=== PATIENT | female | born 1945 | race Caucasian/White ===

== ENCOUNTER 2024-12-29 09:04 | Emergency (ER) | payer MEDICARE, BC ==
[~2024-12-29] VITALS: Ht 160 cm; Wt 72.2 kg
[2024-12-29 09:20] VITALS: BP 143/93; PULSE 98; TEMP 97.9; O2SAT 97
--- NOTE | 2024-12-29 09:28 | Physician Documentation ---
History of Present Illness Chief Complaint: Abdominal Pain w/vomiting Stated Complaint: UTI, SICK HPI This is a 79-year-old female who presents with one and a half days of nausea, vomiting, and diarrhea along with developing dysuria and frequency last night. Patient reports no fevers. 79-year-old female patient who is recently relocated back to [place] came to the emergency room for dysuria since last night. She does have frequency of urination and burning sensation upon urination. She did have nausea vomiting yesterday. She did have abdominal pain yesterday but now she said there is no abdominal pain. The patient is not diabetic. She is taking medication for high blood pressure. Patient does not endorse chest pain, shortness a breath, any focal weakness. She does not smoke but she has been drinking alcohol regularly 2 to 3 drinks per day. She drinks with food. She says she is not agreeable with opioid medication because they cause hypotension. No fever no chills. Medication Reconciliation Scheduled Phenazopyridine HCl (Pyridium), 1 TAB PO Q8H Sulfamethoxazole/Trimethoprim (Bactrim Ds Tablet), 1 TAB PO Q12H Review of Systems ROS As stated above in the HPI, otherwise all systems are reviewed and negative. Physical Exam Vital Signs: Temperature: 97.9, Heart Rate: 98, Respiratory Rate: 16, BP: 143/93, Pulse Oximetry: 97, Weight: 72.200 Physical Exam VITALS: Reviewed and as above. GENERAL: Alert, nontoxic appearing, no apparent distress. HEENT: RESPIRATORY: No increased work of breathing, no respiratory distress, speaking in full clear sentences CHEST: CV: BACK: GI: MUSCULOSKELETAL: SKIN: NEURO: PSYCH: Reviewed vital signs and they are well within normal range and the patient is afebrile. Const: Well built adult female not in acute cardiopulmonary distress Head: Atraumatic Eyes: Normal Conjunctiva ENT: Normal External Ears, Nose and Mouth. Moist mucous membranes Neck: Full range of motion. No meningismus Resp: Clear to auscultation bilaterally. Normal work of breathing Cardio: Regular rate and rhythm, no murmurs. Skin well perfused, heart rate is 96 beats per minute. Abd: Soft, non-tender, non-distended. Normal bowel sounds. No rebound or guarding Skin: No petechiae or rashes. Warm and dry Back: No midline or flank tenderness Ext: No cyanosis, or edema Neuro: Awake and alert Psych: Normal Mood and Affect Progress Results/Orders Results/Orders Vital Signs 12/29/24 09:20 Temp 97.9 Pulse 98 Resp 16 B/P (MAP) 143/93 Pulse Ox 97 Medical Decision Making Findings MSE performed in triage and patient returned to ED lobby by nursing staff During the physical examination, the findings suggestive of acute life- threatening condition such as JVD, tracheal deviation, acidotic breathing, noisy stridorous breath sounds, pulses paradoxus, muffled heart sounds, unequal breath sounds, abdominal rigidity and rebound tenderness, focal neurological deficits, cool clammy skin, severe hypotension, severe tachycardia or bradycardia are absent. Abdominal examination does not reveal any signs of acute abdomen. WBC is 12.2 and H and H is 14 and 41.2 and platelets 248. Sodium 131 potassium 3.8 chloride 96 bicarb 24.3 BUN 13 creatinine 1.33 and glucose 113 AST is 46 ALT 41 her MCV and MCH is elevated. Urine WBC is TNTC. At this point of time I do not really think the patient needs to be in the hospital and bad we will provide outpatient antibiotic therapy and patient will be discharged with aftercare instructions. DISCLAIMER Inadvertent spelling and grammatical errors,inadvertent accounts payable representative errors,syntax errors, grammatical errors, and spelling errors are likely due to EMR/dictation software use and do not reflect on the overall quality of patient care. Note that the electronic time recorded on this note does not necessarily reflect the actual time of the patient encounter. Departure Disposition: 01 HOME / SELF CARE / HOMELESS Impression: Primary Impression: Acute urinary tract infection Condition: Stable Discharge Instructions: Urinary Tract Infection, Adult Additional Instructions: Thank you for coming to our Emergency Department today. Please drink lots of fluids and water to keep yourself well hydrated. Take vitamin B12 and folate supplement daily. Drink alcohol in moderation and gradually cut it down. Please ask your nurse or provider if you have questions about your care today and do not leave until all your questions have been answered. Please use any medications given as directed and follow-up with your doctor (or the doctor you were referred to) in the next 1-3 days. Your primary care doctor can help to coordinate outpatient specialty care and provide authorization for specialty referral as needed. If you do not have a primary care doctor you may follow up at a [facility]. You may also use motrin and tylenol as needed for fever and/or pain unless instructed otherwise by your provider or nurse. Indications for more urgent follow-up have been discussed, but you may return to the Emergency Department at ANY time for any worrisome or worsening symptoms. Referrals: NO PRIMARY CARE PROVIDER (PCP) Prescriptions Sulfamethoxazole/Trimethoprim (Bactrim Ds Tablet) 800 Mg-160 Mg Tablet 1 TAB PO Q12H for 7 Days, #14 TAB Prov: BURAK GRESHAM MD 12/29/24 Phenazopyridine HCl (Pyridium) 200 Mg Tablet 1 TAB PO Q8H for urinary discomfort for 3 Days, #9 TAB 0 Refills Prov: BURAK GRESHAM MD 12/29/24 Signature Scribe Signature: None Attestation: My dictation CHARLIE SLOANP Dec 29, 2024 09:28 BURAK GRESHAM MD Dec 29, 2024 10:43
[2024-12-29 09:40] LABS: CLARITY,URINE TURBID (Clear); COLOR,URINE BROWN (Yellow)
[2024-12-29 09:49] LABS: UA COLLECTION TYPE CLN CATCH MIDSTREAM
[2024-12-29 09:52] LABS: BASOPHILS # (AUTO) 0.1 X10'3 (0-0.2); BASOPHILS % (AUTO) 0.5 % (0-1); EOSINOPHILS % (AUTO) 0.2 % (0-6); HEMATOCRIT 41.2 % (35.0-45.0); LYMPHOCYTES # (AUTO) 0.7 X10'3 (1.1-4.8); LYMPHOCYTES % (AUTO) 5.8 % (21-51); MEAN CORPUSCULAR HEMOGLOBIN 35.5 PG (27.0-31.0); MEAN CORPUSCULAR HGB CONC 34.1 g/dL (33.0-36.5); MEAN CORPUSCULAR VOLUME 104.2 FL (78-98); MEAN PLATELET VOLUME 8.3 FL (7.4-10.4); MONOCYTES # (AUTO) 1.1 X10'3 (0-0.9); NEUTROPHILS # (AUTO) 10.3 X10'3 (1.8-7.7); NEUTROPHILS % (AUTO) 84.5 % (42-75); PLATELET COUNT 248 X10'3 (140-440); RED BLOOD COUNT 3.95 X10'6 (4.20-5.60); RED CELL DISTRIBUTION WIDTH 14.1 % (11.5-14.5); WHITE BLOOD COUNT 12.2 X10'3 (4.5-11.0)
[2024-12-29 10:00] LABS: BACTERIA,URINE 4+ /HPF (Neg); RBC,URINE 50-100 /HPF (0-2); TRANSITIONAL EPI CELLS,URINE FEW /HPF; WBC,URINE TNTC /HPF (0-4)
[2024-12-29 10:01] LABS: SQUAMOUS EPITHELIAL CELL,UR FEW /LPF (FEW)
[2024-12-29 10:09] LABS: ALANINE AMINOTRANSFERASE 41 U/L (12-78); ALBUMIN 3.9 G/DL (3.4-5.0); ALBUMIN/GLOBULIN RATIO 0.7 (1.1-1.5); ALKALINE PHOSPHATASE 143 IU/L (46-116); ANION GAP 11 (8-16); ASPARTATE AMINO TRANSFERASE 46 U/L (10-37); BLOOD UREA NITROGEN 13 MG/DL (7-18); BUN/CREATININE RATIO 9.8 (10.0-20.0); CALCIUM 9.7 MG/DL (8.5-10.1); CHLORIDE 96 MMOL/L (99-107); CREATININE 1.33 MG/DL (0.40-0.90); GLUCOSE 113 MG/DL (70-104); LIPASE 40 U/L (16-77); POTASSIUM 3.8 MMOL/L (3.5-5.1); SODIUM 131 MMOL/L (135-145); TOTAL CARBON DIOXIDE 24.3 MMOL/L (24-32); TOTAL PROTEIN 9.4 G/DL (6.4-8.2); eCRCL 29 ML/MIN; eGFR 39 ML/MIN
[2024-12-29] MEDS ORDERED: PHEN-716 PO (10:48)
[2024-12-29] MEDS ORDERED: SULF1TAB49 PO (10:48)
[2024-12-29 10:53] VITALS: RESP 16
[2024-12-29] MEDS: sulfamethoxazole/trimethoprim DS (800/160mg) tablet PO ONE (10:57)
== END 2024-12-29 11:01 | disposition home or self-care (01) ==
LOC: ER 09:06
DX: N39.0 Urinary tract infection, site not specified (principal); Z79.899 Other long term (current) drug therapy
CPT/HCPCS: 36415; 80053; 81001; 83690; 85025; 87077; 87088; 87186; 99284

== ENCOUNTER 2025-03-21 08:44 | Emergency (ER) | payer MEDICARE, BC ==
[~2025-03-21] VITALS: Ht 160 cm; Wt 71.8 kg
[~2025-03-21 08:44] MED LIST: PHEN-716 PO
[2025-03-21 08:45] VITALS: TEMP 98
--- NOTE | 2025-03-21 09:10 | Physician Documentation ---
History of Present Illness ~ Chief Complaint: Mechanical Fall Stated Complaint: FALL AND ABD PAIN Time Seen by MD: 09:09 HPI 79-year-old female presenting with a fall and head injury recently, as well as abdominal pain She tells me that several days ago she tripped and fell, hitting the front of her head. No loss of consciousness. She does have bruising to her forehead and black eyes. She denies having a severe headache. She did bruise her left wrist and both knees, but denies any significant pain with movement and she is able to walk and bear weight. She also reports that starting this morning she developed lower abdominal pain. She states it is worse in the left lower quadrant. She reports associated nausea and decreased appetite. She tells me she has had several episodes similar to this over the past couple of weeks, that usually last for a day and a half and then improve. She did drink some water this morning but did not eat. She denies any fevers or chills. No vomiting or diarrhea. She does have intermittent constipation. She did have a recent urinary tract infection but denies any urinary symptoms today. No recent abdominal imaging. No other acute concerns. Tetanus within 5 Years?: No Medication Reconciliation Allergies: Uncoded Allergies: OPIOIDS (Allergy, Unknown, DROP IN BP, 03/21/25) Scheduled Phenazopyridine HCl (Pyridium), 1 TAB PO Q8H Scheduled PRN ONDANSETRON ODT 4mg tablet (Ondansetron Odt), 1 TAB PO Q8H PRN for nausea/vomiting Review of Systems Constitutional: Denies: fever Gastrointestinal: Reports: abdominal pain, nausea, constipated; Denies: vomiting Physical Exam Vital Signs: Temperature: 98.0, Source: Oral, Heart Rate: 104, Respiratory Rate: 18, BP: 153/92, Pulse Oximetry: 99, Weight: 71.800 Oxygen Flow Rate: 0 Physical Exam General: This is a pleasant and overall well-appearing older female, daughter at bedside HEENT: The patient has bruising to the central forehead as well as bilateral black eyes Oropharynx appears dry Heart: Mild tachycardia, appears regular Lungs: Clear breath sounds bilateral, normal work of breathing, normal oxygen saturation on room air Abdomen: Soft, nondistended, no peritoneal findings. She does have mild tenderness to palpation of the left lower quadrant only, without rebound or guarding Extremities: Left upper extremity: The patient has some bruising to the left wrist, but no pain with full range of motion, no focal bony point tenderness Bilateral lower extremities: The patient has mild bruising and swelling to both anterior knees, but no focal bony point tenderness, no pain with full range of motion Neuro: Alert and oriented Psychiatric: Calm and cooperative with exam Progress Results/Orders Results/Orders Orders - JOSE DURAND MD Straight Cath For Urine Sample (03/21/25 08:52) Ct Head (03/21/25 09:50) Ct Abdomen Pelvis (03/21/25 09:50) Cult Urine + [place] [facility] (03/21/25 10:44) Completed Orders - JOSE DURAND MD Cbc/Diff (03/21/25 08:52) BMP (03/21/25 08:52) Lipase (03/21/25 08:52) CMP (03/21/25 08:52) Ct Head (03/21/25 09:50) Stat Ekg (03/21/25 ) Ct Abdomen Pelvis (03/21/25 09:50) Ondansetron Inj. (Zofran 4mg/2ml Vial) (03/21/25 09:25) Iohexol 300mg/Ml 100ml Inj. (Omnipaque-3 (03/21/25 09:32) Ua W/Microscopic, Cult If Ind (03/21/25 10:29) Medications Received in ER Medications (Trade) Dose Ordered Sig/Jose Ramon Route PRN Reason Start Time Stop Time Status Last Admin Dose Admin (Zofran 4mg/2ml vial) 4 mg ONCE ONCE IV 03/21/25 09:25 03/21/25 09:26 DC 03/21/25 10:12 4 MG Vital Signs 03/21/25 03/21/25 03/21/25 08:45 09:06 09:45 Temp 98.0 Pulse 104 81 Resp 18 16 B/P (MAP) 153/92 157/82 (107) Pulse Ox 99 98 O2 Flow Rate 0 0 Laboratory Tests Test 03/21/25 09:05 03/21/25 10:29 White Blood Count 7.8 Red Blood Count 3.64 L Hemoglobin 13.1 Hematocrit 38.1 Mean Corpuscular Volume 104.7 H Mean Corpuscular Hemoglobin 35.9 H Mean Corpuscular Hemoglobin Concent 34.3 Red Cell Distribution Width 13.3 Platelet Count 184 Mean Platelet Volume 8.8 Neutrophils (%) (Auto) 75.5 H Lymphocytes (%) (Auto) 11.9 L Monocytes (%) (Auto) 11.2 Eosinophils (%) (Auto) 0.8 Basophils (%) (Auto) 0.6 Neutrophils # (Auto) 5.9 Lymphocytes # (Auto) 0.9 L Monocytes # (Auto) 0.9 Eosinophils # (Auto) 0.1 Basophils # (Auto) 0.0 CBC Comment Sodium Level 135 Potassium Level 4.2 Chloride Level 99 Carbon Dioxide Level 23.6 L Anion Gap 12 Blood Urea Nitrogen 19 H Creatinine 1.20 H Estimated GFR/1.73 m2 44 BUN/Creatinine Ratio 15.8 Glucose Level 118 H Calcium Level 9.0 Total Bilirubin 1.3 H Aspartate Amino Transf (AST/SGOT) 115 H Alanine Aminotransferase (ALT/SGPT) 101 H Alkaline Phosphatase 198 H Total Protein 9.1 H Albumin 3.9 Globulin 5.2 H Albumin/Globulin Ratio 0.8 L Lipase 71 Chemistry Comments Urine Specimen Description Cln catch midstream Urine Color Yellow Urine Clarity Clear Urine pH 7.0 Urine Specific [place] <=1.005 Urine Protein Trace Urine Glucose (UA) Negative Urine Ketones Negative Urine Occult Blood Negative Urine Nitrite Negative Urine Bilirubin Negative Urine Urobilinogen 0.2 Urine Leukocyte Esterase Trace H Urine RBC 0-2 Urine WBC 5-10 H Urine Squamous Epithelial Cells Few Urine Bacteria None seen Urine Culture Indicated Indicated Volume Urine Centrifuged 10 ml Urine Comment EKG/XRAY/CT/US/VASC/MRI EKG : Additional Comment I personally interpreted the EKG and this shows: Sinus rhythm, rate 87, QTC 444, Q-waves and inverted T-waves in the inferior leads, no STEMI CT : Impression I personally interpreted the CT scan, and this shows no acute intracranial hemorrhage on the head CT. CT scan of the abdomen and pelvis does not show any inflammatory process in the left lower quadrant, no evidence of acute diverticulitis Medical Decision Making Differential Dx:Considerations: Include: Closed head injury Additional Comment Differential includes intracranial hemorrhage, fracture, contusion or bruising, diverticulitis, colitis, constipation, urine infection, kidney stone Assessment The patient presents with 2 main concerns. First, she presents with a fall a couple of days ago with head injury. She does have significant bruising to her forehead. Head CT without fracture or intracranial hemorrhage. She also has some bruising to her wrist and knees, but nothing to suggest a fracture or other more dangerous injury. Second, she presents with lower abdominal pain that is intermittent with associated nausea. On exam she has some mild left lower quadrant tenderness, but no peritoneal findings. Her laboratory testing does show slight elevation of her LFTs, slightly higher than previous lab values. CT scan shows no diverticulitis or other acute process in the left lower abdomen, does show gallstones but no obvious inflammatory changes to the gallbladder. Later she tells me that she does drink alcohol daily, which is likely contributing to her slight LFT elevation. Urinalysis does not appear consistent with a urinary tract infection. On re-evaluation, the patient had complete resolution of her symptoms after Zofran. She had no abdominal pain or nausea. I explained the results of all of her testing and she felt comfortable returning home. She will be discharged with a prescription for Zofran as needed for nausea. Strict return precautions were given. Departure Time of Disposition: 10:54 Disposition: 01 HOME / SELF CARE / HOMELESS Impression: Primary Impression: Forehead contusion Additional Impression: Nausea Condition: Improved Discharge Instructions: Nausea, Adult Referrals: NO PRIMARY CARE PROVIDER (PCP) Prescriptions ONDANSETRON ODT 4mg tablet (ONDANSETRON ODT) 4 Mg Tab.rapdis 1 TAB PO Q8H PRN for nausea/vomiting for 14 Days, #20 TAB 1 Refill Prov: JOSE DURAND MD 03/21/25 Education Educated: Patient, Family Educated regarding: diagnosis, treatment, need for follow up Signature Scribe Signature: gisele Attestation: JOSE Pritchett MD Mar 21, 2025 09:10
[2025-03-21 09:17] LABS: MEAN PLATELET VOLUME 8.8 FL (7.4-10.4); RED CELL DISTRIBUTION WIDTH 13.3 % (11.5-14.5)
--- NOTE | 2025-03-21 09:24 | ELECTROCARDIOGRAPH REPORT ---
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 aJs Sosa Measurements Intervals [place] Rate: 87 P: 33 NV: 149 QRS: -19 QRSD: 83 T: -5 QT: 369 QTc: 444 Interpretive Statements Sinus rhythm Atrial premature complex Inferior infarct, old Consider anterior infarct Electronically Signed On 03-22-2025 19:18:[address] Jas Sosa Please click the below link to view image of tracing.
[2025-03-21 09:26] LABS: CREATININE 1.20 MG/DL (0.40-0.90); TOTAL CARBON DIOXIDE 23.6 MMOL/L (24-32); eCRCL 32 ML/MIN; eGFR 44 ML/MIN
[2025-03-21] MEDS ORDERED: iohexol 300mg/ml 100ml inj. ONE (09:32)
--- NOTE | 2025-03-21 10:04 | RADIOLOGY REPORT ---
CLINICAL INFORMATION: 79 years old, Female; HEADSTRIKE. TECHNIQUE: Axial imaging was obtained through the brain without contrast. Coronal and sagittal reformatted images were obtained, reviewed, and stored. Images were reviewed in brain and bone windows. All CT scans at this medical facility are performed using dose modulation techniques as appropriate to a performed exam including the following: Automated exposure control was utilized; adjustment of the MA and/or KV according to patient size; and use of iterative reconstruction technique. CTDIvol = 66.07 mGy DLP = 1243.5 mGy-cm COMPARISON: None FINDINGS: There is no acute intracranial hemorrhage. No mass effect or midline shift. Scattered areas of hypoattenuation are seen in the periventricular and subcortical white matter, which are nonspecific but most likely sequelae of small vessel ischemic disease. The ventricles and sulci are within normal limits in size for age. Basal cisterns are patent. The calvarium is unremarkable. Paranasal sinuses and mastoid air cells are clear. IMPRESSION: 1. No CT evidence of acute intracranial abnormality. 2. Nonacute findings as described above. Workstation: [id number]
[2025-03-21] MEDS: ondansetron/PF 4mg/2ml inj IV ONE (10:12)
--- NOTE | 2025-03-21 10:12 | RADIOLOGY REPORT ---
EXAM: CT CT ABDOMEN PELVIS W/ IV CONTRAST HISTORY: Lower abdominal pain, nausea COMPARISON: None TECHNIQUE: Helical CT images of the abdomen and pelvis were performed with IV contrast. Sagittal and coronal reformatted images were obtained. This CT exam was performed using 1 or more of the following dose reduction techniques: Automated exposure control, adjustment of the mA and/or kv according to patient size, or the use of iterative reconstruction techniques. Radiation Dose Information: CT Dose: CTDI volume is 25.66 mGy. Dose-length product is 1292.34 mGy*cm FINDINGS: CT abdomen: The lung bases are essentially clear. The heart is enlarged. The liver is diffusely fatty density. There are multiple gallstones. There are bilateral renal simple cortical cysts. The spleen and adrenal glands are unremarkable. No abdominal aortic aneurysm or dissection. CT pelvis: No abnormal bowel dilatation, free air, or free fluid. There are colonic diverticula without evidence of acute diverticulitis. The appendix and urinary bladder are unremarkable. There is a right total hip arthroplasty. 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 There is moderate lumbar degenerative disc disease and facet arthropathy. There is grade 1 anterolisthesis L4 on L5 without evidence of spondylolysis. IMPRESSION: 1. Cardiomegaly. 2. Hepatic steatosis. 3. Cholelithiasis. 4. Colonic diverticulosis without evidence of acute diverticulitis. 5. Postoperative changes of right total hip arthroplasty. 6. No evidence of bowel obstruction, acute appendicitis, or other acute process in the abdomen or pelvis.
[2025-03-21 10:40] LABS: LEUKOCYTE ESTERASE ,URINE TRACE (Neg); NITRITES, URINE NEGATIVE (Neg); OCCULT BLOOD,URINE NEGATIVE (Neg)
[2025-03-21 10:41] LABS: UA COLLECTION TYPE CLN CATCH MIDSTREAM
[2025-03-21 10:42] LABS: SQUAMOUS EPITHELIAL CELL,UR FEW /LPF (FEW)
[2025-03-21 10:55] VITALS: BP 140/83; RESP 20; O2SAT 98
[2025-03-21] MEDS ORDERED: ONDA-243 PO (10:55)
[2025-03-21 11:03] VITALS: PULSE 92
== END 2025-03-21 11:12 | disposition home or self-care (01) ==
LOC: ER 08:44
DX: S00.83XA Contusion of other part of head, initial encounter (principal); S60.212A Contusion of left wrist, initial encounter; R11.0 Nausea; Z87.440 Personal history of urinary (tract) infections; Z79.899 Other long term (current) drug therapy; W01.0XXA Fall on same level from slipping, tripping and stumbling without subsequent striking against object, initial encounter; Y93.89 Activity, other specified; Y92.89 Other specified places as the place of occurrence of the external cause; Y99.8 Other external cause status
CPT/HCPCS: 36415; 70450; 74177; 80053; 81001; 83690; 85025; 87088; 93005; 96374; 99285; J2405; J7040; Q9967

== ENCOUNTER 2025-04-11 17:19 | Emergency (ER) | payer MEDICARE, BC ==
[~2025-04-11] VITALS: Ht 160 cm; Wt 65.0 kg
[~2025-04-11 17:19] MED LIST changes: +ONDA-243 PO
[2025-04-11 17:27] VITALS: BP 159/94; PULSE 99; RESP 16; TEMP 98.2; O2SAT 97
[2025-04-11 18:06] LABS: LEUKOCYTE ESTERASE ,URINE LARGE (Neg); NITRITES, URINE POSITIVE (Neg); OCCULT BLOOD,URINE MODERATE (Neg)
[2025-04-11 18:23] LABS: UA COLLECTION TYPE CLN CATCH MIDSTREAM
[2025-04-11 18:25] LABS: AMORPHOUS PHOSPHATES 1+; RENAL CELLS, URINE FEW /HPF; SQUAMOUS EPITHELIAL CELL,UR FEW /LPF (FEW); WBC CLUMPS,URINE MODERATE /HPF (NEGATIVE)
[2025-04-11] MEDS ORDERED: CEPH-585 PO (19:42)
--- NOTE | 2025-04-11 19:42 | Physician Documentation ---
History of Present Illness ~ Chief Complaint: Urinary Symptoms Stated Complaint: UTI Time Seen by MD: 18:44 HPI This is a 79-year-old female who presents with dysuria, patient reports no fever, abdominal pain, or flank pain. Medication Reconciliation Allergies: Uncoded Allergies: OPIOIDS (Allergy, Unknown, DROP IN BP, 03/21/25) Scheduled Cephalexin*Monohydrate* (Keflex*), 1 CAP PO QID Phenazopyridine HCl (Pyridium), 1 TAB PO Q8H Scheduled PRN ONDANSETRON ODT 4mg tablet (Ondansetron Odt), 1 TAB PO Q8H PRN for nausea/vomiting Past Medical History Past Medical History: UTI Review of Systems ROS As stated above in the HPI, otherwise all systems are reviewed and negative. Physical Exam Vital Signs: Temperature: 98.2, Source: Temporal, Heart Rate: 99, Respiratory Rate: 16, BP: 159/94, Pulse Oximetry: 97, Weight: 65.000 Oxygen Flow Rate: 0 Physical Exam VITALS: Reviewed and as above. GENERAL: Alert, nontoxic appearing, no apparent distress. 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 Cephalexin Capsule (Keflex Capsule) (04/11/25 19:35) Vital Signs 04/11/25 17:27 Temp 98.2 Pulse 99 Resp 16 B/P (MAP) 159/94 Pulse Ox 97 O2 Flow Rate 0 Laboratory Tests Test 04/11/25 17:31 Urine Specimen Description Cln catch midstream Urine Color Yellow Urine Clarity Turbid Urine pH 6.5 Urine Specific [place] 1.010 Urine Protein 100 H Urine Glucose (UA) Negative Urine Ketones Negative Urine Occult Blood Moderate H Urine Nitrite Positive H Urine Bilirubin Negative Urine Urobilinogen 0.2 Urine Leukocyte Esterase Large H Urine RBC 10-20 Urine WBC Tntc H Urine WBC Clumps Moderate Urine Squamous Epithelial Cells Few Urine Transitional Epithelial Cells Few Urine Renal Cells Few Urine Amorphous Phosphates 1+ Urine Bacteria 4+ Urine Culture Indicated Indicated Volume Urine Centrifuged 10 ml Urine Comment Microbiology Date/Time Source Procedure Growth Status 04/11/25 18:26 Urine Clean Catch Midstream Urine Culture - Preliminary Culture received. Resulted Medical Decision Making Additional info obtained from: old records, family Findings This 79-year-old female presented with dysuria, patient reports she feels otherwise well reporting no fever, abdominal pain, or flank pain. Physical exam was benign and patient is hemodynamically stable, urinalysis demonstrated evidence of urinary tract infection. As patient is otherwise well-appearing without evidence of urosepsis, pyelonephritis, or metabolic encephalopathy patient is appropriate for outpatient follow up. Previous urine culture showed eaton susceptible E coli. Patient discharged on course of oral antibiotics and provided careful return to care precautions, follow up instructions, and care instructions which patient and her family member verbalized understanding of. Urinary Diff Dx:Considerations: Include: Pyelonephritis, Renal failure, Strain, Urinary Obstruction, Urolithiasis, Urinary retention, UTI, Vaginitis, Other (Urosepsis, sepsis, metabolic encephalopathy) Departure Time of Disposition: 19:41 Impression: Primary Impression: Acute urinary tract infection Condition: Improved Discharge Instructions: Urinary Tract Infection, Adult Additional Instructions: Please take the antibiotics as prescribed. Please follow up with your primary care provider in the next few days. Please return to the emergency department for any new or worsening concerning symptoms. Referrals: NO PRIMARY CARE PROVIDER (PCP) Prescriptions Cephalexin*Monohydrate* (Keflex*) 500 Mg Capsule 1 CAP PO QID, #40 CAP Prov: CHARLIE SLOAN 04/11/25 Education Educated: Patient Educated regarding: diagnosis, treatment, prognosis, need for follow up Signature Scribe Signature: No scribe Attestation: The note accurately reflects work and decisions made by me.ADRIAN Wilson 04/12/25 11:17 Parts of this note were created using [employer] voice recognition software program. While efforts were made to correct any mistakes made by this voice recognition software program, nonsensical phrases may remain in this note. In addition, there may be errors and syntax, grammar, content and spelling. CHARLIE SLOAN Apr 11, 2025 19:42
== END 2025-04-11 19:55 | disposition home or self-care (01) ==
LOC: ER 17:19
DX: N39.0 Urinary tract infection, site not specified (principal); Z79.899 Other long term (current) drug therapy
CPT/HCPCS: 81001; 87077; 87088; 87186; 99283

== ENCOUNTER 2025-04-25 18:43 | Emergency (ER) | payer MEDICARE, BC ==
[~2025-04-25] VITALS: Ht 160 cm; Wt 75.0 kg
[~2025-04-25 18:43] MED LIST changes: +AMOX-115 PO; +CEPH-585 PO
[2025-04-25 18:55] VITALS: TEMP 98.4
--- NOTE | 2025-04-25 18:59 | ELECTROCARDIOGRAPH REPORT ---
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
--- NOTE | 2025-04-25 19:50 | RADIOLOGY REPORT ---
EXAM: CT CT HEAD INDICATION: FALL; HEAD STRIKE TECHNIQUE: CT of the head without intravenous contrast. Radiation Dose Information: CT Dose: CTDI volume is 63.46 mGy. Dose-length product is 1133.57 mGy*cm The dose indicators for CT are the volume Computed Tomography (CT) Dose Index (CTDIvol) and the Dose Length Product (DLP), and are measured in units of mGy and mGy-cm, respectively. These indicators are not patient dose, but values generated from the CT scanner acquisition factors. The report includes radiation exposure data for exposures received during this examination. COMPARISON: CT CT FACIAL BONES/SOFT TISSUE on DOS: 04/25/25, CT CT HEAD on DOS: 03/21/25 FINDINGS: Motion artifact degrades fine detail. No acute territorial infarct, intracranial hemorrhage, or mass effect. There are global involutional changes with compensatory prominence of the ventricles and sulci. Patchy periventricular and subcortical white matter hypoattenuation is nonspecific but may be related to small vessel ischemic disease. Bilateral lens implants. The paranasal sinuses and mastoid air cells are clear. The osseous structures are unremarkable. IMPRESSION: 1. No acute territorial infarct, intracranial hemorrhage, or mass effect. 2. Age-related involutional changes. Chronic microvascular changes.
--- NOTE | 2025-04-25 19:52 | RADIOLOGY REPORT ---
EXAM: CT CT CERVICAL SPINE INDICATION: fall; head strike EXAM DATE: 04/25/2025 07:14 PM COMPARISON: CT CT HEAD on DOS: 04/25/25, CT CT HEAD on DOS: 03/21/25 TECHNIQUE: Multiple axial CT images of the cervical spine were obtained using bone algorithm. Axial and coronal reformatting was done. Bone and soft tissue windows were reviewed. Radiation Dose Information: CT Dose: CTDI volume is 26.95 mGy. Dose-length product is 640.39 mGy*cm FINDINGS: There is no acute displaced fracture. There is reversal of the cervical lordosis. There are degenerative changes of the cervical spine characterized by endplate osteophytosis and intervertebral disc space narrowing. There is grade 1 anterolisthesis of C3 on C4 and C4 on C5. Disc osteophyte complexes at C5-6 and C6-7 efface the thecal sac. Degenerative uncovertebral and facet hypertrophy contribute to multilevel neural foraminal narrowing. The paraspinal soft tissues are unremarkable. IMPRESSION: 1. No acute displaced fracture. 2. Degenerative changes of the cervical spine as detailed. 3. All CT scans at this medical facility are performed using dose modulation techniques as appropriate to a performed exam including the following: Automated exposure control was utilized; adjustment of the MA and/or KV according to patient size; and use of iterative reconstruction technique.
--- NOTE | 2025-04-25 19:57 | RADIOLOGY REPORT ---
CLINICAL HISTORY: head strike TECHNIQUE: CT exam of the facial bones was performed without intravenous contrast. This exam was performed according to our departmental dose optimization program. Up-to-date CT equipment and radiation dose reduction techniques are utilized as appropriate. CTDI 54.49 mGy ] DLP [ 933.05 mGy.cm ] COMPARISON: CT CT HEAD on DOS: 04/25/25, CT CT HEAD on DOS: 03/21/25 FINDINGS: Age-indeterminate minimally displaced nasal bone fractures with minimal overlying soft tissue swelling, possibly acute given clinical history. The osseous structures are otherwise intact. Streak artifact referable to dental hardware obscures evaluation of the mid face. The paranasal sinuses and mastoid air cells are clear. There are bilateral lens implants. IMPRESSION: 1. Age-indeterminate minimally displaced nasal bone fractures with minimal overlying soft tissue swelling, possibly acute given clinical history.
[2025-04-25 20:08] LABS: MEAN PLATELET VOLUME 8.6 FL (7.4-10.4); RED CELL DISTRIBUTION WIDTH 13.7 % (11.5-14.5)
[2025-04-25 20:22] LABS: INR 1.0 INR
[2025-04-25 20:29] LABS: CREATININE 0.81 MG/DL (0.40-0.90); TOTAL CARBON DIOXIDE 23.2 MMOL/L (24-32); eCRCL 48 ML/MIN; eGFR 69 ML/MIN
[2025-04-25] MEDS: thiamine 100mg/ml 2ml inj. IV ONE (20:30)
[2025-04-25] MEDS: folic acid 1mg/0.2ml inj IV ONE (20:31)
[2025-04-25 20:43] VITALS: BP 126/81; PULSE 96; RESP 16; O2SAT 98
[2025-04-25 20:50] LABS: ETHANOL 371 MG/DL (<10)
--- NOTE | 2025-04-25 22:17 | Physician Documentation ---
History of Present Illness ~ Chief Complaint: Mechanical Fall Stated Complaint: FALL Time Seen by MD: 19:02 Mode of Arrival: EMS, Stretcher HPI 79-year-old female BIBA with known alcoholism had mechanical fall with a head strike without loss of consciousness. Suffered epistaxis which is resolved. There was no obvios nasal deformity, scalp contusions or lacerations. She repor ts she drinks 2-3 drinks a night and then also during the day several. Patient has a non combative, easily redirectable to follow commands with obvious intoxication. She is grossly neurologically intact without focal neuro deficits and moves all extremities well. Tetanus within 5 Years?: No Medication Reconciliation Allergies: Uncoded Allergies: OPIOIDS (Allergy, Unknown, DROP IN BP, 03/21/25) Scheduled Cephalexin*Monohydrate* (Keflex*), 1 CAP PO QID Phenazopyridine HCl (Pyridium), 1 TAB PO Q8H Scheduled PRN ONDANSETRON ODT 4mg tablet (Ondansetron Odt), 1 TAB PO Q8H PRN for nausea/vomiting Discontinued Medications Amox Tr/Potassium Clavulanate (Augmentin 500-125 Tablet), 1 TAB PO Q12H Discontinued Reason: Auto Discontinued Past Medical History Past Medical History: UTI Review of Systems All Other Systems at this time: Reviewed and Negative Constitutional: Reports: other (Intoxicated) ENT: Reports: nose bleeding Physical Exam Vital Signs: RN Vital Signs have been reviewed: Yes, Temperature: 98.4, Source: Oral, Heart Rate: 96, Respiratory Rate: 16, BP: 126/81, Pulse Oximetry: 98, Weight: 75.000 Oxygen Flow Rate: 0 General Appearance: alert, obese, ETOH Head: No: active bleeding, Maravilla's Sign, contusions, ecchymosis, lacerations Face: normal Eye Lid: normal inspection Pupils/EOM/Fundus: PERRLA Nose: intranasal blood; No: swelling, eccymosis, deformity, tender, laceration Gag present: Yes Neck: non-tender, full range of motion Respiratory: lungs clear Chest: normal inspection Cardiovascular: normal peripheral pulses Gastrointestinal: non-tender Back: normal inspection Pelvis: normal Skin: warm/dry Neurologic: oriented x4, human resources training manager II-XII nml as tested Motor / Sensory: no motor deficit, no sensory deficit Cerebellar function exam: normal Thoughts/Hallucinations: normal thought pattern, no apparent hallucination Affect: appropriate Best Eye Response: (4) open spontaneously Best Verbal Response: (4) confused conversation Best Motor Response: (6) obeys commands Progress Results/Orders Results/Orders Orders - JOSE FLYNN PAC Ct Head (04/25/25 19:05) Ct Cervical Spine (04/25/25 19:05) Ct Facial Bones/Soft Tissue (04/25/25 19:05) Completed Orders - JOSE FLYNN PAC Ct Head (04/25/25 19:05) Ct Cervical Spine (04/25/25 19:05) Ct Facial Bones/Soft Tissue (04/25/25 19:05) Cbc/Diff (04/25/25 19:14) CMP (04/25/25 19:14) Pt Inr (04/25/25 19:14) Ethanol (04/25/25 19:14) Thiamine Inj. (Thiamine Inj.) (04/25/25 19:20) Folic Acid Inj. (Folic Acid Inj.) (04/25/25 19:20) Vital Signs 04/25/25 04/25/25 04/25/25 18:55 20:43 20:43 Temp 98.4 Pulse 92 96 Resp 17 16 16 B/P (MAP) 108/71 126/81 (96) Pulse Ox 97 98 O2 Flow Rate 0 0 Laboratory Tests Test 04/25/25 19:54 White Blood Count 5.5 Red Blood Count 3.41 L Hemoglobin 12.4 Hematocrit 36.2 Mean Corpuscular Volume 106.2 H Mean Corpuscular Hemoglobin 36.5 H Mean Corpuscular Hemoglobin Concent 34.4 Red Cell Distribution Width 13.7 Platelet Count 206 Mean Platelet Volume 8.6 Neutrophils (%) (Auto) 63.7 Lymphocytes (%) (Auto) 22.9 Monocytes (%) (Auto) 10.2 Eosinophils (%) (Auto) 2.2 Basophils (%) (Auto) 1.0 Neutrophils # (Auto) 3.5 Lymphocytes # (Auto) 1.3 Monocytes # (Auto) 0.6 Eosinophils # (Auto) 0.1 Basophils # (Auto) 0.1 CBC Comment Prothrombin Time 10.6 INR International Normalized Ratio 1.0 Coagulation Comments Sodium Level 141 Potassium Level 3.6 Chloride Level 107 Carbon Dioxide Level 23.2 L Anion Gap 11 Blood Urea Nitrogen 11 Creatinine 0.81 Estimated GFR/1.73 m2 69 BUN/Creatinine Ratio 13.6 Glucose Level 115 H Calcium Level 8.4 L Total Bilirubin 0.3 Aspartate Amino Transf (AST/SGOT) 67 H Alanine Aminotransferase (ALT/SGPT) 52 Alkaline Phosphatase 144 H Total Protein 7.7 Albumin 3.0 L Globulin 4.7 H Albumin/Globulin Ratio 0.6 L Chemistry Comments Ethyl Alcohol Level 371 H Medical Decision Making Additional information obtaine: other (EMS) Findings 79-year-old female brought in by ambulance status post mechanical fall with head strike is intoxicated. Laboratory screening & CT imaging upon arrival in the emergency department. Patient metabolized, received fluids and thiamine with f olate and now has steady gait, very conversational with reassuring labs other than elevated ETOH. 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 Family at patient's bedside however eloped prior to receiving discharge instructions from myself despite being asked to stay. Nurse does report that all aftercare instructions were address. They were placed in room 18 & subsequently left. I feel reassured that they received appropriate instructions. Differential Dx:Considerations: Include: Closed head injury, Fracture(s), Spine injury, Contusion(s), Hematoma(s), Other (Alcoholic ketoacidosis, electrolyte derangement, facial fractures, and he has) Departure Disposition: 01 HOME / SELF CARE / HOMELESS Impression: Primary Impression: Epistaxis Additional Impressions: Alcoholism Closed head injury Qualified Codes: S09.90XA - Unspecified injury of head, initial encounter Condition: Improved Discharge Instructions: Alcohol Intoxication, Head Injury, Adult, Nosebleed, A dult Additional Instructions: Your CT imaging obtained tonight in the emergency department is reassuring for no fracture or intracranial hemorrhage. Please consider decreasing your alcohol consumption maintain good nutrition. Please return to the emergency department if needed. Referrals: NO PRIMARY CARE PROVIDER (PCP) Education Educated: Patient, Family Educated regarding: diagnosis, treatment, prognosis, need for follow up Signature Scribe Signature: . Attestation: . JOSE FLYNN PAC Apr 25, 2025 22:17
== END 2025-04-25 22:20 | disposition home or self-care (01) ==
LOC: ER 18:43
DX: S09.90XA Unspecified injury of head, initial encounter (principal); R04.0 Epistaxis; Z79.899 Other long term (current) drug therapy; Z87.440 Personal history of urinary (tract) infections; W01.10XA Fall on same level from slipping, tripping and stumbling with subsequent striking against unspecified object, initial encounter; Y93.89 Activity, other specified; Y92.89 Other specified places as the place of occurrence of the external cause; Y99.8 Other external cause status
CPT/HCPCS: 36415; 70450; 70486; 72125; 80053; 85025; 85610; 93005; 96374; 96375; 99285; G0480; J3411; J3490; 80320